=== PATIENT | female | born 1940 | race Caucasian/White ===

== ENCOUNTER → 2018-10-12 09:55 | Outpatient (CLI) | payer MEDICARE, MEDICAID, SELFPAY ==
--- NOTE | 2018-10-12 10:43 | PM.TREADMILL ---
Cardiac Stress Test Report Referral & Results Date Patient Seen: 10/12/18 Requesting provider: Carolynn Hidalgo Indication: Shortness of breath Rest ECG: Unremarkable Procedure Note: After both written and verbal informed consent the patient had an IV started by the diagnostic imaging RN and then was hooked up to the treadmill monitoring system. The patient was placed on the treadmill at 1 mile an hour with no elevation and was then injected with the Alla scan material. The Cardiolite was then immediately administered. The patient spent an additional 2-3 minutes on the treadmill before being returned to the [facility] in the supine position. The patient had a normal response to all infused materials. Patient became severely dyspneic with minimal activity. Unable to walk even a full 3 minutes at 0.8 miles an hour with no elevation on the treadmill. Was minimally affected by the Lexiscan material, so do not believe that played a role Impression: See perfusion imaging for details regarding possible ischemia Please note: Actual ECG tracings can be found in the PACS system.
--- NOTE | 2018-10-15 14:47 | DI.NM.S_ITS ---
DATE OF SERVICE: 10/12/2018 PROCEDURE: Pharmacological perfusion study. INDICATIONS: Shortness of breath, history of atrial fibrillation, hypertension, diabetes mellitus, hyperlipidemia, history of angina pectoris. RADIOPHARMACEUTICAL: 26.6 mCi technetium-99m Myoview IV was injected at stress and 25.2 mCi technetium-99m Myoview IV was injected at rest. CARDIAC STRESS: Initially, patient attempted exercise stress test. However, walking at 0.8 miles flat, she was pretty short of breath. Hence, it was discontinued. She walked less than 3 minutes. Patient given IV Lexiscan as per standard protocol. She remained hemodynamically stable. Baseline rhythm was sinus. During Lexiscan, there was no convincing ischemic changes. No significant arrhythmias. During exercise, a lot of artifact seen. RAW DATA: Significant breast shadow was seen. GATED STUDY: Resting stress LV ejection fraction 68%. Stress LV ejection fraction 73%. I don't see any obvious wall motion abnormalities. Resting LV end-diastolic volume is 120 mL. TID ratio is 0.86, which is within normal limits. Lung/heart ratio is 0.31, which is within normal limits. MYOCARDIAL PERFUSION SCAN: Stress supine, resting supine, and stress prone images were compared to each other. Stress supine images reveal small-sized mildly decreased perfusion of apex. Resting supine images revealed minimally decreased perfusion of anteroapex and distal anterior wall. During prone images, apical defect got improved. There was minimally decreased perfusion of distal inferior wall. No obvious reversible ischemia. CONCLUSION: I'll call this study probably a normal myocardial perfusion study with evidence of breast tissue attenuation artifact and some shifting breast tissue attenuation artifact. Patient has significant breast shadow on raw images. Normal wall motion goes against the diagnosis of previous transmural myocardial infarction. Overall, no convincing ischemia infarction pattern. Resting left ventricular (LV) ejection fraction 68% and stress LV ejection fraction 73%. No transient ischemic dilatation. No abnormal lung/heart ratio. Patient has perfusion study in 11/2013. At that time, there was fixed apical defect. She has poor exercise tolerance. She became significantly dyspneic during exertion. Consider other etiologies, like pulmonary etiology, for shortness of breath. Nidia Barkley - AHSAN/tony/ doc#: [id number]/job#: [id number] dd: 10/15/2018 07:53:00 dt: 10/15/2018 14:35:00 DICTATING MD/COPIES TO: Carolynn Hidalgo MD COPIES MNE: COLLEEN
== END ==
PROVIDERS: Family Provider Internal Medicine; PCP Internal Medicine; Visit Provider Internal Medicine Cardiovascular Disease
DX: I51.7 Cardiomegaly (principal); R06.03 Acute respiratory distress
CPT/HCPCS: 78452; 93016; 93017; 93018; A9502; J2785

== ENCOUNTER → 2018-10-14 13:31 | Outpatient (CLI) | payer MEDICARE, MEDICAID, SELFPAY ==
--- NOTE | 2018-10-14 | DI.RAD.S_ITS ---
PROCEDURE: XR CHEST 2V INDICATIONS: COUGH TECHNIQUE: 2 views of the chest were acquired. COMPARISON: None. FINDINGS: Surgical changes and devices: None. Lungs and pleura: Mildly prominent perihilar interstitial markings are present without definite focal consolidation, effusion, or pneumothorax. Mediastinum: Mediastinal contours are normal. Heart size is enlarged. Bones and chest wall: No suspicious bony abnormalities. Soft tissues appear unremarkable. IMPRESSION: Cardiomegaly with moderate vascular congestion. Superimposed atypical interstitial pneumonia is difficult to exclude. Dictated by: Kang Leon M.D. on 10/14/2018 at 15:41 Approved by: Kang Leon M.D. on 10/14/2018 at 15:42
--- NOTE | 2018-10-14 | DI.ECHO.S_ITS ---
[facility] +---------+ : : [address] [place] : : : : [id number] : : : : Phone: [phone]+ Echocardiogram Report + + :Name: SHERIE MCDONOUGH Study Date: 10/14/2018 Height: 60 in : :[facility] Exam Location: [place] Weight: 191 lb : : Gender: Female BSA: 1.8 m2 : :: 1940 Age: 78 yrs BP: 182/65 mmHg: :Reason For Study: SHORTNESS OF BREATH : : Performed By: Bijan Valiente : :Referring: VIOLETA DAUGHERTY : + + Interpretation Summary The left ventricle is normal in size. The ejection fraction is estimated to be 60-65%. There has been no significant change in LVEF since the previous study. The right ventricle is normal in size and function. Aortic valve is mild to moderately calcified. There is moderately reduced leaflet mobility. The peak aortic velocity is 3.48 m/sec. The aortic valve mean gradient is 33.2 mmHg. The peak aortic velocity on the previous exam was 2.08 m/sec. There is moderate aortic stenosis. Compared to the prior echo study, there has been an increase in the severity of aortic stenosis. There is mild aortic regurgitation. The right ventricular systolic pressure is estimated to be at least 43 mmHg based on an estimated right atrial pressure of 3 mm Hg. Compared to the prior echo exam, there has been no change in the severity of pulmonary hypertension. Procedure: A two-dimensional transthoracic echocardiogram with color flow and Doppler was performed. The study quality was technically adequate. Comparison is made with the echocardiogram of 11/17/13. The patient was in normal sinus rhythm during the exam. The patient was bradycardic with a heart rate of 47-62 beats per minute. Left Ventricle: The left ventricle is normal in size. Left ventricular wall thickness is mildly increased. There is no thrombus. The ejection fraction is estimated to be 60-65%. There has been no significant change since the previous study. There are no focal wall motion abnormalities. MV E/A: 0.83 Med Peak E' Billy: 5.3 cm/sec E/E' med: 24.5. Right Ventricle: The right ventricle is normal in size and function. Atria: The left atrium is severely dilated. The left atrium has mildly increased in size since the prior echo exam. Right atrial size is normal. The interatrial septum is intact with no evidence for an atrial septal defect. Mitral Valve: There is moderate mitral annular calcification. No significant mitral valve stenosis. There is mild mitral regurgitation. Aortic Valve: The aortic valve is trileaflet. Aortic valve is mild to moderately calcified. There is moderately reduced leaflet mobility. The peak aortic velocity is 3.48 m/sec. The aortic valve mean gradient is 33.2 mmHg. The calculated aortic valve area is 1.2 cm2. There is moderate aortic stenosis. The peak aortic velocity on the previous exam was 2.08 m/sec. Compared to the prior echo study, there has been an increase in the severity of aortic stenosis. There is mild aortic regurgitation. Tricuspid Valve: The tricuspid valve is normal in structure and function. There is trace tricuspid regurgitation. The right ventricular systolic pressure is estimated to be at least 43 mmHg based on an estimated right atrial pressure of 3 mm Hg. Compared to the prior echo exam, there has been no change in the severity of pulmonary hypertension. Pulmonic Valve: The pulmonic valve is not well seen, but is grossly normal. There is trace pulmonic regurgitation. Great Vessels: The aortic root is normal size. The dimensions of the ascending aorta are normal. The pulmonary artery is normal size. The IVC is of normal diameter and collapses greater than 50% with a sniff. This suggests a low right atrial pressure of 3 mm Hg. Pericardium/ Pleura There is no pericardial effusion. There is no pleural effusion. MMode/2D Measurements & Calculations LVIDd: 5.1 cm LVOT diam: 1.9 cm LVIDs: 3.2 cm Ao root diam: 3.3 cm FS: 36.8 % Aortic Jxn: 3.0 cm EPSS: 0.16 cm asc Aorta Diam: 3.4 cm IVSd: 1.1 cm Ao Arch Diam (Prox Trans): 2.8 cm LVPWd: 0.92 cm LV fish. diameter/BSA (cm/m^2): 2.8 LV sys. diameter/BSA (cm/m^2): 1.7 LA dimension: 4.9 cm RA long axis: 5.3 cm LA A2 area: 26.1 cm2 RA area: 17.6 cm2 LA A4 area: 28.5 cm2 RA vol: 50.2 ml LA length (vol): 6.5 cm RA : 27.4 ml/m2 LA vol: 97.7 ml IVC diam: 1.5 cm LA vol index: 53.4 ml/m2 Doppler Measurements & Calculations Ao V2 max: 348.6 cm/sec LVOT Max Billy: 145.7 cm/sec Ao V2 mean: 282.6 cm/sec LV V1 max P.5 mmHg Ao max P.6 mmHg LV V1 VTI: 40.7 cm Ao mean P.2 mmHg WILL(I,D): 1.2 cm2 Ao V2 VTI: 98.2 cm WILL(V,D): 1.2 cm2 sev ratio: 0.41 WILL indexed to BSA (cm^2/m^2): 0.64 AI P1/2t: 512.1 msec AI dec slope: 222.6 cm/sec2 MV E max billy: 128.8 cm/sec TR max billy: 316.0 cm/sec MV A max billy: 156.0 cm/sec TR max P.0 mmHg MV E/A: 0.83 PA V2 max: 117.3 cm/sec Med Peak E' Billy: 5.3 cm/sec PA V2 mean: 81.6 cm/sec E/E' med: 24.5 PA mean P.0 mmHg Lat Peak E' Billy: 4.9 cm/sec PA pr(Accel): 51.6 mmHg E/E' lat: 26.0 PA Accel Time: 0.07 sec E/e' average: 25.3 MV dec time: 0.26 sec MVA(VTI): 2.2 cm2 MV V2 mean: 78.8 cm/sec SV(LVOT): 115.3 ml MV mean P.1 mmHg MV V2 VTI: 52.9 cm Reading Physician:04:39 PM
== END ==
PROVIDERS: Family Provider Internal Medicine; PCP Internal Medicine; Visit Provider Internal Medicine Cardiovascular Disease
DX: I08.0 Rheumatic disorders of both mitral and aortic valves (principal); R06.02 Shortness of breath; I27.20 Pulmonary hypertension, unspecified
CPT/HCPCS: 71046; 93306